=== PATIENT | female | born 1975 | race Caucasian/White ===

== ENCOUNTER 2024-11-20 19:54 | Emergency (ER) | payer BC, OTHER ==
[2024-11-20] MEDS: Metoclopramide 10 MG/2 ML SDV IVPUSH ONE (20:55)
[2024-11-20] MEDS: Sodium Chloride 0.9% 10 ML Syringe FLUSH PRN (20:55)
[2024-11-20] MEDS: diphenhydrAMINE 50 MG/ML SDV IVPUSH ONE (20:55)
[2024-11-20] MEDS: Ketorolac 30 MG/ML SDV IVPUSH ONE (20:56)
== END 2024-11-20 21:33 | disposition home or self-care (01) ==
LOC: DL.ED 19:54
DX: G43.009 Migraine without aura, not intractable, without status migrainosus (principal)
CPT/HCPCS: 96374; 96375; 99283; J1200; J1885; J2765